=== PATIENT | female | born 1965 | race African-American/Black ===

== ENCOUNTER 2017-03-05 10:05 | Emergency (ER) | payer MEDICARE, MEDICAID ==
[~2017-03-05] VITALS: Ht 165.1 cm; Wt 54.4 kg
[2017-03-05 10:18] VITALS: BP 118/68
--- NOTE | 2017-03-05 10:30 | Emergency Room Report ---
History of Present Illness General Chief Complaint: Alcohol Intoxication Source: Patient, EMS Present Illness HPI 52YOF BIBEMS for alleged ETOH intox. Found outside of bank, sleeping, bottle of liquor empty nearby. No signs of trauma Patient endorses ETOH today Denies pain Denies other drugs Allergies: Coded Allergies: UNABLE TO ASSESS (Unverified , 03/05/17) Patient History Limited by: medical condition Past Medical History: unable to obtain Past Surgical History: unable to obtain Pertinent Family History: unable to obtain Social History: Reports: alcohol use Now: No Immunizations: UTD Reviewed Nursing Documentation: PMH: Agreed, PSxH: Agreed Nursing Documentation-PMH Past Medical History Deferred: Pt Cognitively Impaired Review of Systems All Other Systems: negative except mentioned in HPI Physical Exam Vital Signs Date Time Temp Pulse Resp B/P Pulse Ox O2 Delivery O2 Flow Rate FiO2 03/05/17 10:14 98.4 85 20 110/85 98 Room Air Sp02 EP Interpretation: reviewed, normal General Appearance: normal inspection, well appearing, no apparent distress, non-toxic, other - +AOB, intoxicated but arousable Head: normocephalic, atraumatic Eyes: bilateral eye EOMI, bilateral eye PERRL ENT: normal ENT inspection, hearing grossly normal, normal pharynx, no angioedema, normal voice Neck: normal inspection, full range of motion, supple, no bony tend Respiratory: normal inspection, lungs clear, normal breath sounds, no respiratory distress, no retraction, no wheezing Cardiovascular #1: regular rate, rhythm, no edema Gastrointestinal: normal inspection, normal bowel sounds, non tender, soft, no guarding, no hernia Genitourinary: no CVA tenderness Musculoskeletal: normal inspection, back normal, normal range of motion, Farzana' s Sign negative Neurologic: normal inspection, alert, oriented x3, responsive, web marketing assistant III-XII nml as tested, motor strength/tone normal, speech normal, other - 4 limb movement normal Psychiatric: normal inspection, judgement/insight normal, mood/affect normal, no suicidal/homicidal ideation, no delusions Skin: normal inspection, normal color, no rash Medical Decision Making Diagnostic Impression: Primary Impression: Acute alcoholic intoxication Qualified Codes: F10.920 - Alcohol use, unspecified with intoxication, uncomplicated ER Course VSS. Afebrile No focal neuro deficits Atraumatic Low suspicion for ICH trauma, other metabolic causes of AMS Was observed until clinical sobriety Patient ambulated to bathroom, now sitting in chair in [place] area Wants to leave Ambulating with steady gait Advised on dangers of heavy ETOH abuse DC home Last Vital Signs Date Time Temp Pulse Resp B/P Pulse Ox O2 Delivery O2 Flow Rate FiO2 03/05/17 10:18 98.3 80 16 118/68 100 Room Air Status: improved Disposition: HOME, SELF-CARE YASH CASTILLO M.D. Mar 05, 2017 10:30
[2017-03-05 11:55] VITALS: BP 120/70
== END 2017-03-05 11:57 | disposition home or self-care (01) ==
LOC: EDBD 10:05 → EMR 11:10 → EDUNIT# 11:10 → EMR 11:57
DX: F10.920 Alcohol use, unspecified with intoxication, uncomplicated (principal)
CPT/HCPCS: 99284